=== PATIENT | female | born 1950 | race African-American/Black ===

== ENCOUNTER 2020-04-16 03:26 | Outpatient (CLI) | payer MEDICARE, SELFPAY ==
[2020-04-16 17:45] LABS: SARS-CoV-2 RNA PCR Negative
== END 2020-04-16 03:27 | disposition home or self-care (01) ==
LOC: ANHCOVIDDT 03:27
PROVIDERS: Visit Provider Internal Medicine Gastroenterology
DX: Z01.812 Encounter for preprocedural laboratory examination (principal); Z20.828 Contact with and (suspected) exposure to other viral communicable diseases
CPT/HCPCS: 87635; C9803; U0003

== ENCOUNTER 2020-04-19 01:39 | Day surgery (SDC) | payer MEDICARE, SELFPAY ==
[2020-04-14 10:40] VITALS: BMI 35.0
--- NOTE | 2020-04-19 09:37 | PM.HPGS ---
History of Present Illness History of Present Illness Consent: Risks, benefits, and alternatives have been discussed and questions answered. Patient agrees to proceed with procedure. Chief complaint: Neoplasm Screening Narrative: Krystyna Yang is a 69 year old AAf female referred for screening colonoscopy secondary history of colonic polyps. Last colonoscopy was 3 years ago. Patient a adenomas about removed. Patient's maternal grandmother had colon cancer. Patient is asymptomatic. [facility] Past Medical History Medical History (Updated 04/19/20 @ 09:39 by Moses Rivera MD) Congestive heart failure Graves disease Hypertension Osteoarthritis Surgical History Surgical History (Updated 04/19/20 @ 09:40 by Moses Rivera MD) H/O bariatric surgery Status post knee replacement Social History Social History Smoking packs per day: 0.5 Smoking cigarettes per day: 10.0 Years smoked: 40 Smoking pack-years: 20.00 Smoking status: Former smoker Tobacco type: cigarettes Alcohol intake: current Drinks per week: 2 Alcohol use details: WINE Substance use: never Substance use type: does not use Living arrangements: alone Spiritual care concerns: No Meds Home Medications and Allergies Home Medications Medication Instructions Recorded Confirmed Type aspirin [Adult Low Dose Aspirin] 81 mg PO HS 04/14/20 04/14/20 History atorvastatin 10 mg PO HS 04/14/20 04/14/20 History cholecalciferol (vitamin D3) 25 mcg PO HS 04/14/20 04/14/20 History [Vitamin D3] diclofenac sodium 150 mg PO HS 04/14/20 04/14/20 History furosemide 40 mg PO HS 04/14/20 04/14/20 History gabapentin 900 mg PO HS 04/14/20 04/14/20 History levothyroxine 88 mcg PO HS 04/14/20 04/14/20 History losartan 100 mg PO HS 04/14/20 04/14/20 History multivit with min-folic acid 1 tablet PO HS 04/14/20 04/14/20 History [Adult One Daily Multivitamin] omeprazole 40 mg PO HS 04/14/20 04/14/20 History potassium chloride 10 meq PO HS 04/14/20 04/14/20 History Allergies Allergy/AdvReac Type Severity Reaction Status Date / Time lisinopril AdvReac Rash Verified 04/19/20 09:36 Exam Const: Orientation/consciousness: patient oriented x3 Resp: Auscultation: clear to auscultation bilaterally Cardio: Rate: regular rate Rhythm: regular rhythm Heart sounds: no murmurs GI: GI Palp: Yes Soft to palpation, No Tenderness to palpation present (GI), Yes No hepatosplenomegaly present and No Palpable mass present Auscultation: normal bowel sounds Neuro: General: patient oriented x3 and no focal motor deficits Extrem: General: no pedal edema Assessment and Plan Additional Plan screening colonoscopy secondary history of colonic polyps
[2020-04-19 09:38] VITALS: BP 179/79; PULSE 67; RESP 20; TEMP 36.3; O2SAT 100; BMI 35.2
[2020-04-19] MEDS: LACTATED RINGERS 1,000 ML 150 ML IV CONT (10:15)
[2020-04-19 11:13] VITALS: BP 123/65; PULSE 59; RESP 17; O2SAT 100
[2020-04-19 11:23] VITALS: BP 134/75; PULSE 57; RESP 16; O2SAT 100
[2020-04-19 11:33] VITALS: BP 136/74; PULSE 57; RESP 20; O2SAT 100
== END 2020-04-19 11:58 | disposition home or self-care (01) ==
PROVIDERS: Visit Provider Internal Medicine Gastroenterology
PROC: 0DJD8ZZ Inspection of Lower Intestinal Tract, Via Natural or Artificial Opening Endoscopic (ICD-10-PCS; CPT 45378; principal; 2020-04-19 10:00)
DX: Z12.11 Encounter for screening for malignant neoplasm of colon (principal); Z86.010 Personal history of colon polyps; Z80.0 Family history of malignant neoplasm of digestive organs; Z96.659 Presence of unspecified artificial knee joint; I11.0 Hypertensive heart disease with heart failure; I50.9 Heart failure, unspecified; E05.00 Thyrotoxicosis with diffuse goiter without thyrotoxic crisis or storm; M19.90 Unspecified osteoarthritis, unspecified site; Z87.891 Personal history of nicotine dependence; K57.30 Diverticulosis of large intestine without perforation or abscess without bleeding
CPT/HCPCS: G0105; J2001; J2704; J7120